=== PATIENT | female | born 1940 | race American Indian/Alaskan Native ===

== ENCOUNTER 2018-03-09 15:49 | Emergency (ER) | payer MEDICARE ==
[2018-03-09 16:03] VITALS: BP 122/78
[2018-03-09 16:27] LABS: Basophils % (Auto) 0.6 % (0.0-1.8); Eosinophils % (Auto) 0.3 % (0.0-4.3); Hemoglobin 12.8 gm/dl (10.1-14.3); Lymphocytes # (Auto) 0.8 K/mm3 (1.2-5.4); Lymphocytes % (Auto) 14.8 % (13.4-35.0); Mean Corpuscular HGB Conc 34 % (30-34); Mean Corpuscular Hemoglobin 28 pg (28-32); Mean Corpuscular Volume 83 fl (79-97); Monocytes # (Auto) 0.3 K/mm3 (0.0-0.8); Monocytes % (Auto) 6.6 % (0.0-7.3); Platelet Count 207 K/mm3 (140-440); Red Blood Count 4.57 M/mm3 (3.65-5.03)
[2018-03-09 16:41] LABS: Alanine Aminotransferase 27 units/L (7-56); Albumin 3.6 g/dL (3.9-5); BUN/Creatinine Ratio 24; Blood Urea Nitrogen 12 mg/dL (7-17); Calcium 8.9 mg/dL (8.4-10.2); Hemolysis Index 4; Partial Thromboplastin Time 69.2 Sec. (24.2-36.6)
--- NOTE | 2018-03-09 17:18 | Emergency Department Report ---
ED Medical Clearance HPI - General Chief complaint: Pain General Stated complaint: ABNORMAL LABS Time Seen by Provider: 03/09/18 16:58 Source: patient, family Mode of arrival: Wheelchair Limitations: Physical Limitation - History of Present Illness Initial comments: This is a 77-year-old female, who is unknown to this provider previously, fairly on Coumadin therapy since 2016 for a reported isolated pulmonary embolus. She reports that it was her single isolated episode and she does not have a history of recurrent DVT or thromboembolic events. She also denies a history of A. fib, flutter, denies a history of easy bleeding, and she also denies dietary indiscretions. Furthermore, she denies initiating of starting new medications. Her primary care doctor is in [place]. She presents to the ER today with a complaint of elevated INR, as evaluated by her outpatient primary care doctor. She has no complaints at this time. Complaint: medical clearance request -: Sudden Reason for Medical Clearance: laboratory abnormality Place: home Alledged Intoxication: No Compliant with Home Medications: Yes Traumatic Symptoms: denies traumatic injury Associated Symptoms: denies: chest pain, shortness of breath, palpitations, diaphoresis, denies other symptoms, confusion, cough, fever/chills, headaches, anorexia, malaise, nausea/vomiting, rash, seizure, syncope, weakness Treatments Prior to Arrival: none Home medications: Previous Rx's Medication Instructions Recorded Last Taken Type Azithromycin [Zithromax Z-YO] 250 mg PO DAILY #6 tab 03/16/15 Unknown Rx Promethazine /Codeine 5 ml PO Q6H PRN #60 ml 03/16/15 Unknown Rx [Phenergan/Codeine 6.25-10 mg/5Ml] ALBUTEROL Inhaler [ProAir HFA 2 puff IH QID PRN #1 inhalation 05/24/15 Unknown Rx Inhaler] Azithromycin [Zithromax TAB] 500 mg PO QDAY #3 tablet 05/24/15 Unknown Rx HYDROcodone/APAP 5-325 [[place] 1 each PO Q6HR PRN #20 tablet 05/24/15 Unknown Rx 5/325] Prednisone [predniSONE 10 mg 10 mg PO .TAPER #1 tab.ds.pk 05/24/15 Unknown Rx (6-Day Pack, 21 Tabs)] Allergies/Adverse reactions: Allergies Allergy/AdvReac Type Severity Reaction Status Date / Time amoxicillin Allergy Unknown Verified 03/16/15 13:35 atorvastatin calcium Allergy Unknown Verified 05/24/15 09:30 [From Lipitor] ezetimibe [From Zetia] Allergy Unknown Verified 05/24/15 09:30 hydroxychloroquine sulfate Allergy Unknown Verified 03/16/15 13:35 [From Plaquenil] nickel Allergy Unknown Verified 05/24/15 09:30 shellfish derived Allergy Unknown Verified 05/24/15 09:30 SILVER Allergy Unknown Uncoded 05/24/15 09:30 ED Review of Systems ROS: Stated complaint: ABNORMAL LABS Other details as noted in HPI Comment: All other systems reviewed and negative ED Past Medical Hx - Past Medical History Hx Hypertension: Yes Hx Heart Attack/AMI: Yes Hx Diabetes: Yes Hx GERD: Yes Hx Arthritis: Yes (RHEUMATOID) Hx COPD: Yes Additional medical history: HLD. SINUS. DDD. SPINAL STENOSIS. LUNG DISEASE - Surgical History Additional Surgical History: REFLUX SURGERY. LEFT WRIST SURGERY. TUBAL LIGATION - Social History Smoking Status: Never Smoker Substance Use Type: None - Medications Home Medications: Home Medications Medication Instructions Recorded Confirmed Last Taken Type Azithromycin [Zithromax Z-YO] 250 mg PO DAILY #6 tab 03/16/15 Unknown Rx Promethazine /Codeine 5 ml PO Q6H PRN #60 ml 03/16/15 Unknown Rx [Phenergan/Codeine 6.25-10 mg/5Ml] ALBUTEROL Inhaler [ProAir HFA 2 puff IH QID PRN #1 inhalation 05/24/15 Unknown Rx Inhaler] Azithromycin [Zithromax TAB] 500 mg PO QDAY #3 tablet 05/24/15 Unknown Rx HYDROcodone/APAP 5-325 [[place] 1 each PO Q6HR PRN #20 tablet 05/24/15 Unknown Rx 5/325] Prednisone [predniSONE 10 mg 10 mg PO .TAPER #1 tab.ds.pk 05/24/15 Unknown Rx (6-Day Pack, 21 Tabs)] ED Physical Exam - General Limitations: Physical Limitation General appearance: alert, in no apparent distress - Head Head exam: Present: atraumatic, normocephalic - Eye Eye exam: Present: normal appearance, EOMI. Absent: nystagmus - ENT ENT exam: Present: normal exam, normal orophraynx, mucous membranes moist, normal external ear exam - Neck Neck exam: Present: normal inspection, full ROM - Respiratory Respiratory exam: Present: normal lung sounds bilaterally. Absent: respiratory distress - Cardiovascular Cardiovascular Exam: Present: regular rate, normal rhythm, normal heart sounds. Absent: bradycardia, tachycardia, irregular rhythm, systolic murmur, diastolic murmur, rubs, gallop - GI/Abdominal GI/Abdominal exam: Present: soft, normal bowel sounds. Absent: distended, tenderness, guarding, rebound, rigid, pulsatile mass - Extremities Exam Extremities exam: Present: normal inspection, full ROM, normal capillary refill , other (2+ pulses noted in the bilateral upper, lower extremities. Compartments soft. No long bony tenderness. The pelvis is stable.). Absent: pedal edema, joint swelling, calf tenderness - Back Exam Back exam: Present: normal inspection, full ROM. Absent: tenderness, CVA tenderness (R), paraspinal tenderness, vertebral tenderness - Neurological Exam Neurological exam: Present: alert, oriented X3, CN II-XII intact, other ( Extraocular movements intact. Tongue midline. No facial droop. Facial sensation intact to light touch in the V1, V2, V3 distribution bilaterally. 5 and 5 strength in 4 extremities.. Sensation is intact to light touch in 4 extremities.). Absent: motor sensory deficit - Psychiatric Psychiatric exam: Present: anxious - Skin Skin exam: Present: warm, dry, intact, normal color. Absent: rash ED Course Vital Signs 03/09/18 15:57 Temperature 97.8 F Pulse Rate 84 Respiratory 18 Rate Blood Pressure 122/78 O2 Sat by Pulse 96 Oximetry ED Medical Decision Making - Lab Data Result diagrams: 03/09/18 16:07 03/09/18 16:07 Vital Signs 03/09/18 15:57 Temperature 97.8 F Pulse Rate 84 Respiratory 18 Rate Blood Pressure 122/78 O2 Sat by Pulse 96 Oximetry Lab Results 03/09/18 03/09/18 03/09/18 Range/Units 16:07 16:07 16:07 WBC 5.1 (4.5-11.0) K/mm3 RBC 4.57 (3.65-5.03) M/mm3 Hgb 12.8 (10.1-14.3) gm/dl Hct 38.0 (30.3-42.9) % MCV 83 (79-97) fl MCH 28 (28-32) pg MCHC 34 (30-34) % RDW 17.0 H (13.2-15.2) % Plt Count 207 (140-440) K/mm3 Lymph % (Auto) 14.8 (13.4-35.0) % Riley % (Auto) 6.6 (0.0-7.3) % Eos % (Auto) 0.3 (0.0-4.3) % Baso % (Auto) 0.6 (0.0-1.8) % Lymph # 0.8 L (1.2-5.4) K/mm3 Riley # 0.3 (0.0-0.8) K/mm3 Eos # 0.0 (0.0-0.4) K/mm3 Baso # 0.0 (0.0-0.1) K/mm3 Seg Neutrophils % 77.7 H (40.0-70.0) % Seg Neutrophils # 4.0 (1.8-7.7) K/mm3 PT 58.1 H (12.2-14.9) Sec. INR 6.00 H* (0.87-1.13) APTT 69.2 H* (24.2-36.6) Sec. Sodium 143 (137-145) mmol/L Potassium 3.9 (3.6-5.0) mmol/L Chloride 106.0 (98-107) mmol/L Carbon Dioxide 26 (22-30) mmol/L Anion Gap 15 mmol/L BUN 12 (7-17) mg/dL Creatinine 0.5 L (0.7-1.2) mg/dL Estimated GFR > 60 ml/min BUN/Creatinine Ratio 24 % Glucose 181 H (65-100) mg/dL Calcium 8.9 (8.4-10.2) mg/dL Total Bilirubin 0.50 (0.1-1.2) mg/dL AST 46 H (5-40) units/L ALT 27 (7-56) units/L Alkaline Phosphatase 58 (35-129) units/L Total Protein 6.6 (6.3-8.2) g/dL Albumin 3.6 L (3.9-5) g/dL Albumin/Globulin Ratio 1.2 % - Medical Decision Making Differential diagnosis, including but not limited to: Pulse positive laboratory error, to laboratory abnormality, supratherapeutic INR without symptom Assessment and plan: 77-year-old female who reports being on Coumadin since 2016 for an isolated pulmonary embolus, presenting with asymptomatic elevated INR. Patient has been recommended to hold Coumadin for the next 48 hours, and have a recheck within 72 hours. She is advised to adhere to diet and lifestyle modifications for patient to take Coumadin, and she will also be given 2.5 mg of oral vitamin K. She's not sure if she is followed up with a mill control operator, and reports that her primary care doctor has maintained her on Coumadin therapy since 2016. I recommended follow-up with mill control operator to determine need for prolonged anticoagulation given isolated thromboembolic event from 2016. Patient and daughter both verbalized understanding. ED Disposition Clinical Impression: Supratherapeutic INR Disposition: DC-01 TO HOME OR SELFCARE Is pt being admited?: No Does the pt Need Aspirin: No Condition: Stable Instructions: Elevated INR (ED) Additional Instructions: Do not take Coumadin for the next 48 hours. Avoid consuming foods and for medications that will interact with Coumadin. For a full detailed list, please go to the following website, [email or web address] Follow-up in 72 hours for repeat INR check. Return to the ER right away if change in mental status, extremity weakness, slurred speech, inability to see, inability to speak, any strokelike symptoms, abdominal pain, vomiting blood, defecating blood, or new, worsening or different symptoms. I recommended follow -up with the fundraising specialist within the next month to determine if the patient she'll require his lifelong anticoagulation on Coumadin therapy. Likely hematology specialists including Dr. Windy Serrato Referrals: MARY HUBER MD [Primary Care Provider] - 3-5 Days ERMA WARE MD [Staff Physician] - 3-5 Days CARMINE RAMIREZ MD [Staff Physician] - 3-5 Days
[2018-03-09] MEDS ORDERED: VITAMIN K *ORAL LIQUID PO ONE (18:00)
== END 2018-03-09 18:11 | disposition home or self-care (01) ==
LOC: ED 15:49
DX: R79.1 Abnormal coagulation profile (principal); I11.0 Hypertensive heart disease with heart failure; I50.9 Heart failure, unspecified; E11.9 Type 2 diabetes mellitus without complications; K21.9 Gastro-esophageal reflux disease without esophagitis; J44.9 Chronic obstructive pulmonary disease, unspecified; E78.00 Pure hypercholesterolemia, unspecified; M06.9 Rheumatoid arthritis, unspecified
CPT/HCPCS: 36415; 80053; 85025; 85610; 85730; J3430